=== PATIENT | male | born 1955 | race Caucasian/White ===

== ENCOUNTER → 2018-05-05 | Outpatient (CLI) | payer OTHER ==
--- NOTE | 2018-05-05 13:05 | KCIC ---
MR of the left shoulder Indication: Left shoulder pain. Previous AC joint impingement with biceps insertion surgery. Pain since November. Decreased range of motion. Comparison: Not currently available. Technique: Standard multiplanar sequences are obtained. Findings: Artifact: No significant image degradation. Acromioclavicular joint: Postsurgical changes. No acute findings or mass effect. Rotator cuff: * Supraspinatus-infraspinatus tendon: Thickening and heterogeneous signal compatible with tendinosis. No measurable defect. * Subscapularis tendon: Partial tearing. * Muscle bulk: Within normal limits * Subacromial subdeltoid bursa: No significant effusion. Fluid: No significant glenohumeral effusion. Glenohumeral cartilage: Primary osteoarthritis with osteophytes and subchondral cysts. Labrum: Tear of the inferior labrum, greatest at the posteroinferior quadrant and extending into the anteroinferior quadrant. Heterogeneous signal within the superior labrum and posterior labrum. Small anteroinferior para labral cyst, the bulk of which measures 15 mm. Biceps tendon: Poorly seen Bones: No acute fracture or aggressive destruction. Soft tissue: No acute findings. Impression: 1. Circumferential labral degeneration, with tearing of at least the anteroinferior through posteroinferior labrum. Anteroinferior para labral cyst. 2. Primary osteoarthritis. 3. Rotator cuff tendinosis. Partial subscapularis tendon tear. 4. Poorly seen biceps tendon, could be due to prior surgery. Electronically signed by: Franko Valencia MD (05/05/2018 1:02 PM) [email or web address]
== END | disposition home or self-care (01) ==
LOC: KCIC MRI 07:51
PROVIDERS: ATTEND Orthopaedic Surgery
DX: S46.012A Strain of muscle(s) and tendon(s) of the rotator cuff of left shoulder, initial encounter (principal); M19.012 Primary osteoarthritis, left shoulder; M25.712 Osteophyte, left shoulder; X58.XXXA Exposure to other specified factors, initial encounter; Y93.89 Activity, other specified; Y92.89 Other specified places as the place of occurrence of the external cause; Y99.8 Other external cause status
CPT/HCPCS: 73221

== ENCOUNTER → 2018-09-19 | Outpatient (CLI) | payer OTHER ==
--- NOTE | 2018-09-19 11:33 | KCIC ---
EXAM: MRI RIGHT ELBOW DATE: 09/19/2018 8:45 AM CLINICAL INDICATION: Right medial epicondylar pain COMPARISON: None available TECHNIQUE: Multiplanar, multisequence MR imaging of the right elbow was performed without IV contrast. FINDINGS: Small elbow joint effusion. There is mild to moderate soft tissue swelling overlying the medial epicondyle. There is thickening of the common flexor tendon with mild edema and thickening of the ulnar collateral ligament at the humeral attachment without discrete tear of either the tendons or ligament. No significant associated bone marrow edema. No overlying loculated fluid collection or fluid cleft. There is marked thickening and increased signal within the common extensor tendon origin with mild associated intrasubstance fluid cleft. The radial collateral ligament, lateral ulnar collateral ligament and visualized portions of the annular ligament are grossly intact. The biceps and brachialis tendons are intact. However there is mild increased signal and thickening of the distal biceps tendon suggesting tendinosis. No significant bicipital radial bursal fluid. Changes from prior triceps tendon repair are seen. Otherwise, normal signal and morphology. Normal muscle signal and bulk of the visualized forearm muscles groups. The ulnar nerve is normal in signal and morphology throughout the visualized course. Radiohumeral arthrosis with full-thickness chondral defects and subchondral edema. Otherwise, normal bone marrow signal without edema, fracture or AVN. IMPRESSION: 1. Changes of medial epicondylitis with medial subcutaneous soft tissue edema, and edema/thickening of the common flexor tendon group. Thickening of the otherwise intact ulnar collateral ligament at the attachment is also seen, possibly low-grade strain or reactive. 2. Lateral epicondylitis is also seen with intrasubstance tendon tear. 3. Mild tendinosis of the distal biceps tendon attachment 4. 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 Electronically signed by: Ramone Escoto MD (09/19/2018 11:28 AM) [email or web address]
== END | disposition home or self-care (01) ==
LOC: KCIC MRI 08:26
PROVIDERS: ATTEND Orthopaedic Surgery
DX: S66.811A Strain of other specified muscles, fascia and tendons at wrist and hand level, right hand, initial encounter (principal); M77.01 Medial epicondylitis, right elbow; M77.11 Lateral epicondylitis, right elbow; M94.221 Chondromalacia, right elbow; M19.021 Primary osteoarthritis, right elbow; M25.421 Effusion, right elbow; R60.0 Localized edema; X58.XXXA Exposure to other specified factors, initial encounter; Y93.89 Activity, other specified; Y92.89 Other specified places as the place of occurrence of the external cause; Y99.8 Other external cause status
CPT/HCPCS: 73221

== ENCOUNTER → 2019-01-01 | Outpatient (CLI) | payer OTHER ==
--- NOTE | 2019-01-01 11:13 | KCIC ---
CT of left shoulder dated 01/01/2019. No comparison available. Clinical data indication: Preop planning for shoulder surgery. Pain. TECHNIQUE: Contiguous axial imaging of the left shoulder performed with thin cut coronal and sagittal reconstruction. One or more of the following individualized dose reduction techniques were utilized for this examination: 1. Automated exposure control 2. Adjustment of the mA and/or kV according to patient size 3. Use of iterative reconstruction technique. FINDINGS: Moderate hypertrophic change of the glenohumeral joint with prominent marginal osteophytes. There is subchondral cystic change of the inferior glenoid with prominent anterior joint space narrowing. No destructive process or periostitis. No evidence of fracture. Possible small glenohumeral joint effusion. No loose body. Visualized soft tissue structures are otherwise unremarkable. Rotator cuff and glenoid labrum are not well evaluated based on technique. There is mild hypertrophic change of the AC joint. Mild undersurface irregularity of the acromium. No apparent subacromial/subdeltoid bursal fluid collection. Visualized soft tissue structures otherwise unremarkable. Imaged portions the left lung are clear. IMPRESSION: 1. Moderate degenerative arthrosis at the left glenohumeral joint. There is subchondral cystic change of the inferior glenoid and associated full-thickness cartilage loss is not excluded. 2. Mild AC joint arthropathy. 3. No apparent soft tissue abnormality. Electronically signed by: Franko Snyder MD (01/01/2019 11:10 AM) [facility]
== END | disposition home or self-care (01) ==
LOC: KCIC CT 10:33
PROVIDERS: ATTEND Orthopaedic Surgery
DX: S43.432A Superior glenoid labrum lesion of left shoulder, initial encounter (principal); M19.012 Primary osteoarthritis, left shoulder; M89.312 Hypertrophy of bone, left shoulder; M25.712 Osteophyte, left shoulder; M25.812 Other specified joint disorders, left shoulder; X58.XXXA Exposure to other specified factors, initial encounter; Y93.89 Activity, other specified; Y92.89 Other specified places as the place of occurrence of the external cause; Y99.8 Other external cause status
CPT/HCPCS: 73200

== ENCOUNTER → 2019-04-03 | Outpatient (CLI) | payer OTHER ==
--- NOTE | 2019-04-03 10:37 | KCIC ---
EXAM: CT right shoulder-Preop [place] protocol DATE: 04/03/2019 8:30 AM COMPARISON: No prior INDICATION: Right shoulder pain, preop, osteoarthritis, chronic shoulder pain TECHNIQUE: Non-union protocol completed through the affected site without IV contrast. 2-D reformatted sagittal and coronal images were created at the CT console workstation. PQRS compliance statement - One or more of the following individualized dose reduction techniques were utilized for this study: 1. Automated exposure control 2. Adjustment of the mA and/or kV according to patient size 3. Use of iterative reconstruction technique FINDINGS: There is moderate glenohumeral joint space loss, particularly anteriorly. There is subchondral sclerosis and cystic change. Marginal osteophytosis is present particularly inferiorly. Small joint bodies are seen anterior inferiorly. The humerus is not high riding. Negative asymmetric atrophy of the rotator muscles. Negative acute fracture or dislocation. Changes of prior biceps tenodesis are seen. There is mild remodeling of the glenoid, with mild retroversion. Longitudinal bone stock of the glenoid measures approximately 3 cm superiorly, 2.8 centrally, and 3.1 cm inferiorly. Dependent opacities in the right lower lobe likely atelectasis. IMPRESSION: Right shoulder joint osteoarthritis Electronically signed by: Ramone Escoto MD (04/03/2019 10:34 AM) [facility]
== END | disposition home or self-care (01) ==
LOC: KCIC CT 08:05
PROVIDERS: ATTEND Orthopaedic Surgery
DX: Z01.818 Encounter for other preprocedural examination (principal); M19.011 Primary osteoarthritis, right shoulder; R91.8 Other nonspecific abnormal finding of lung field; G89.29 Other chronic pain
CPT/HCPCS: 73200

== ENCOUNTER → 2020-03-18 | Outpatient (CLI) | payer OTHER ==
--- NOTE | 2020-03-18 18:22 | KCIC ---
EXAM: 2 Views Left Shoulder DATE: 03/18/2020 12:00 AM INDICATION: Reason: STATUS S/P TOTAL REPLACEMENT, PAIN LT SHOULDER SINCE SURGERY / Spl. Instructions: / History: COMPARISON: No Prior FINDINGS: There is no evidence for acute fracture or dislocation. AC joint is congruent. Changes of left shoulder hemiarthroplasty in good alignment without definite hardware complication or fracture. Chronic glenoid degenerative changes are seen. Humeral head is not high riding. IMPRESSION: 1. No acute fracture or dislocation. 2. Changes of left shoulder hemiarthroplasty, without definite hardware complication or fracture on the submitted images. Electronically signed by: Ramone Escoto MD (03/18/2020 6:20 PM) [facility]
== END | disposition home or self-care (01) ==
LOC: KCIC 13:33
PROVIDERS: ATTEND Physician Assistant
DX: M19.012 Primary osteoarthritis, left shoulder (principal); Z96.612 Presence of left artificial shoulder joint
CPT/HCPCS: 73030

== ENCOUNTER → 2021-04-02 | Outpatient (CLI) | payer OTHER ==
--- NOTE | 2021-04-02 09:49 | KCIC ---
EXAM: RIGHT UPPER QUADRANT ULTRASOUND. HISTORY: Abdominal pain radiating to the right shoulder. COMPARISON: None. FINDINGS: Sonographic evaluation of the right upper quadrant was performed. The liver appears normal in parenchymal echotexture. There are no focal lesions. The gallbladder is unremarkable without evidence of stones, wall thickening or pericholecystic fluid. There is no sonographic Bang[place] sign. The common duct measures 3 mm. Limited images of the visualize d portions of the head of the pancreas reveal no abnormality. The right kidney measures 11.2 cm. Cortical thickness and echogenicity are preserved. There is no hyd ronephrosis. The visualized portions of the abdominal aorta and inferior vena cava are grossly patent and normal i n caliber. IMPRESSION: 1. No cause for pain is identified sonographically. The pancreas is not well-visualized. Electronically signed by: Shanique Kaur MD (04/02/2021 9:47 AM) [id number]
== END ==
LOC: KCIC US 07:53
PROVIDERS: ATTEND Obstetrics & Gynecology
DX: R10.9 Unspecified abdominal pain (principal)
CPT/HCPCS: 76705